=== PATIENT | male | born 1980 | race African-American/Black ===

== ENCOUNTER 2021-10-01 21:17 | Emergency (ER) | payer OTHER ==
[~2021-10-01] VITALS: Ht 172.7 cm; Wt 97.0 kg
--- NOTE | 2021-10-01 21:59 | PHYS DOC ---
Past Medical History Past Surgical History: No Surgical History General Adult EDM: Chief Complaint: ANKLE PROBLEM HPI: HPI: Patient is a 41 year old male with no significant medical history who presents the ED today complaining of 4 out of 10 right medial ankle pain, symptoms began 1-1/2 months ago, he states he sprained his ankle getting into his truck. Patient describes the pain as sharp and intermittent worse on touching the ankle and sometimes walking. Denies anything specifically relieving the pain. Review of Systems: Review of Systems: Constitutional: Denies fever or chills. [] Musculoskeletal: Reports right ankle pain Integument: Denies rash. [] Neurologic: Denies headache, focal weakness or sensory changes. [] Psychiatric: Denies depression or anxiety. [] Heart Score: C/O Chest Pain: N/A Risk Factors: Risk Factors: DM, Current or recent (<one month) smoker, HTN, HLP, family history of CAD, obesity. Risk Scores: Score 0 - 3: 2.5% MACE over next 6 weeks - Discharge Home Score 4 - 6: 20.3% MACE over next 6 weeks - Admit for Clinical Observation Score 7 - 10: 72.7% MACE over next 6 weeks - Early Invasive Strategies Allergies: Allergies: Allergies Coded Allergies Type Severity Reaction Last Updated Verified No Known Drug Allergies 10/01/21 No Physical Exam: PE: Constitutional: Well developed, well nourished, no acute distress, non-toxic appearance. [] Skin: Warm, dry, no erythema, no rash. [] Back: No tenderness, no CVA tenderness. [] Extremities: Right medial and lateral ankle with trace amount of soft tissue swelling. Tenderness on palpation of the right medial ankle. Full range of motion to the right ankle, foot and toes. No navicular bone tenderness to the right foot. No tenderness of the base of the fifth metatarsal of the right foot. +2 right pedal pulse. Cap refill less than 2 seconds of right toes. Neurologic: Alert and oriented X 3, normal motor function, normal sensory function, no focal deficits noted. [] Psychologic: Affect normal, judgement normal, mood normal. [] Current Patient Data: Vital Signs: Vital Signs Date Time Temp Pulse Resp B/P (MAP) Pulse Ox O2 Delivery O2 Flow Rate FiO2 10/01/21 21:30 98.0 76 18 136/78 (97) 93 Room Air 98.0 EKG: EKG: [] Radiology/Procedures: Radiology/Procedures: []PROCEDURE: ANKLE RIGHT 3V Exam: Right ankle 3 views INDICATION: Pain TECHNIQUE: Frontal, lateral and oblique views of the right ankle Comparisons: None FINDINGS: Bone mineralization is normal. No acute or healed fractures. Soft tissue swelling overlying the medial malleolus. Joint spaces are well-maintained. IMPRESSION: Soft tissue swelling overlying the malleolus without underlying osseous abnormality identified. Electronically signed by: Sumaya Schumacher MD (10/01/2021 10:29 PM) [facility] DICTATED and SIGNED BY: SUMAYA SCHUMACHER MD DATE: 10/01/212227 Course & Med Decision Making: Course & Med Decision Making Pertinent Labs and Imaging studies reviewed. (See chart for details) This a 41-year-old male patient presented to the ED today with right ankle pain that began 1-1/2 months ago after spraining his ankle. Right ankle x-rays are negative for any acute findings. Patient refused Jerson wrap and Aircast. Ice elevation encouraged. Follow-up with Ortho in 1 week. OTC pain relievers Dragroc Disclaimer: Dragroc Disclaimer: This electronic medical record was generated, in whole or in part, using a voice recognition dictation system. Departure Departure Impression: Primary Impression: Right ankle sprain Qualified Codes: S93.401A - Sprain of unspecified ligament of right ankle, initial encounter Disposition: HOME / SELF CARE / HOMELESS Condition: STABLE Referrals: BRENDA MCINTYRE II, MD follow up in 1-2 weeks Patient Instructions: Ankle Sprain Additional Instructions: You were seen for right ankle pain, right ankle x-rays are negative for any acute findings. We highly recommend you contact the provided orthopedic doctor and set up a follow-up appointment in the next 7 to 14 days. Try to ice and elevate the extremity. You can take [id number] pain relievers as needed for pain MARC ROGER APRN Oct 01, 2021 21:59
--- NOTE | 2021-10-01 22:31 | RAD ---
Exam: Right ankle 3 views INDICATION: Pain TECHNIQUE: Frontal, lateral and oblique views of the right ankle Comparisons: None FINDINGS: Bone mineralization is normal. No acute or healed fractures. Soft tissue swelling overlying the media l malleolus. Joint spaces are well-maintained. IMPRESSION: Soft tissue swelling overlying the malleolus without underlying osseous abnormality identified. Electronically signed by: Sumaya Mccollum MD (10/01/2021 10:29 PM) [facility]
[2021-10-01 22:56] VITALS: BP 123/73
== END 2021-10-01 23:20 | disposition home or self-care (01) ==
LOC: ER 21:17
DX: S93.401A Sprain of unspecified ligament of right ankle, initial encounter (principal); X50.9XXA Other and unspecified overexertion or strenuous movements or postures, initial encounter; Y93.89 Activity, other specified; Y92.89 Other specified places as the place of occurrence of the external cause; Y99.8 Other external cause status
CPT/HCPCS: 73610; 82962; 99283; L4350; A6450